=== PATIENT | male | born 1990 | race African-American/Black ===

== ENCOUNTER 2017-06-07 14:13 | Emergency (ER) | payer OTHER ==
[~2017-06-07] VITALS: Ht 193 cm; Wt 108.9 kg
[~2017-06-07 14:13] MED LIST: IBUPROFEN 800800 M1 PO; NORCO 5-325 TA1 EACH PO; ZYRTEC10 MG PO; [UNRECOGNIZED DRUG - REMARK]
[2017-06-07] MEDS ORDERED: PREDNISONE 20 M20 M1 PO (14:38)
[2017-06-07] MEDS ORDERED: FLEXERIL PO (14:38)
[2017-06-07 14:56] VITALS: BP 135/75
== END 2017-06-07 14:57 | disposition home or self-care (01) ==
LOC: ER 14:13
DX: M54.5 Low back pain (principal); Z90.89 Acquired absence of other organs

== ENCOUNTER 2017-08-17 17:56 | Emergency (ER) | payer OTHER ==
[~2017-08-17] VITALS: Ht 193 cm; Wt 108.9 kg
[~2017-08-17 17:56] MED LIST changes: +FLEXERIL PO; +PREDNISONE 20 M20 M1 PO
[2017-08-17] MEDS ORDERED: IBUPROFEN 800800 M1 PO (18:30)
== END 2017-08-17 19:08 | disposition home or self-care (01) ==
LOC: ER 17:56
DX: S93.402A Sprain of unspecified ligament of left ankle, initial encounter (principal); X50.3XXA Overexertion from repetitive movements, initial encounter; Y93.67 Activity, basketball; Y92.89 Other specified places as the place of occurrence of the external cause; Y99.8 Other external cause status